=== PATIENT | male | born 1990 | race African-American/Black ===

== ENCOUNTER 2020-06-21 10:27 | Emergency (ER) | payer OTHER, SELFPAY ==
[2020-06-21] VITALS (7 sets, daily range): BP systolic 108–119; BP diastolic 65–78; PULSE 72–87; RESP 16–25; TEMP 37.1; O2SAT 98–100
--- NOTE | ~2020-06-21 | CT_ITS ---
EXAMINATION: CTA chest PE protocol DATE: 06/21/2020 14:08 INDICATION: Chest pain. TECHNIQUE: Computed tomography angiography (CTA) of the chest was performed with 100 mL Omnipaque-350 intravenous contrast timed to evaluate the pulmonary arteries. Coronal maximum intensity projection 3D-reconstructions were created by the technologist. Automated exposure control and iterative reconst ruction technique were employed. The dose-length product was 267.89 mGy-cm. COMPARISON: Chest single view 06/21/20 FINDINGS: There is no pneumonia or pleural effusion. The heart size is normal. No pericardial effusio n. There is no pulmonary embolus. The bones are unremarkable. IMPRESSION: 1. No pulmonary embolus. Reviewed, dictated and finalized at location A. MACHINE HELPER IMPRESSION: 1. No pulmonary embolus.
--- NOTE | ~2020-06-21 | XR_ITS ---
EXAMINATION: XR chest 1V portable DATE: 06/21/2020 11:17 INDICATION: Anterior pain. TECHNIQUE: A single frontal view of the chest was obtained. COMPARISON: None. FINDINGS: The chest demonstrates clear lungs without pneumonia, pleural effusion, or pneumothorax. Th e heart size is normal. IMPRESSION: 1. No acute cardiopulmonary disease. Reviewed, dictated and finalized at location A. L ASSEMBLER
--- NOTE | 2020-06-21 10:36 | ECG_ITS ---
Measurements Intervals [place] Rate: 86 P: 77 FL: 174 QRS: 77 QRSD: 118 T: 54 QT: 335 QTc: 401 Interpretive Statements SINUS RHYTHM INTRAVENTRICULAR CONDUCTION DELAY ST ELEVATION CONSISTENT WITH INJURY, PERICARDITIS, OR EARLY REPOLARIZATION ABNORMAL ECG Electronically Signed On 06-21-2020 12:50:37 [employer] by Lonny Davis D.O.
[2020-06-21 11:24] LABS: Basophils Percent Auto 0.7 % (0.2-1.2); Eosinophils Absolute Auto 0.1 K/mm3 (0-0.3); Eosinophils Percent Auto 1.5 % (0-4.4); Hematocrit 46.2 % (42.0-52.0); Hemoglobin 15.6 g/dL (14.0-18.0); Lymphocytes Absolute Auto 2.07 K/mm3 (0.9-3.2); Lymphocytes Percent Auto 50.5 % (18.3-44.2); Mean Corpuscular HGB Conc 33.8 g/dl (32-36); Mean Corpuscular Hemoglobin 29.4 pg (26-34); Mean Corpuscular Volume 87.2 fl (80-100); Mean Platelet Volume 10.7 fl (7.4-10.4); Monocytes Absolute Auto 0.4 K/mm3 (0.1-0.6); Monocytes Percent Auto 8.5 % (2.6-8.5); Neutrophils Absolute Auto 1.6 K/mm3 (1.3-6.7); Neutrophils Percent Auto 38.8 % (45.5-73.1); Platelet Count Result 255 k/mm3 (150-375); Red Cell Distribution Width 11.9 % (11.5-14.5); White Blood Count 4.1 K/mm3 (4.5-10.0)
[2020-06-21 11:32] LABS: Add Urine Microscopic? YES; Appearance Urine Clear (Clear); Bilirubin Urine Negative (Negative); Blood Urine Negative (Negative); Color Urine Straw (Yellow); Glucose Urine UA Negative (Negative); Ketones Urine Negative (Negative); Leukocyte Esterase Ur Negative LEU/UL (Negative); Mucus Urine Rare /lpf; Nitrate Urine Negative (Negative); Protein Urine Negative (Negative); RBC Urine 0-2 /hpf (0-2); Specific Grav Ur 1.013 (1.001-1.035); Squamous Epithelial Cell Urine Rare /hpf (Few); WBC Urine 0-3 /hpf
[2020-06-21 11:36] LABS: Alanine Aminotransferase 28 U/L (4-50); Alkaline Phosphatase 53 U/L (38-126); Anion Gap 8 mmol/L (8-16); Aspartate Amino Transferase 42 U/L (17-59); Bilirubin,Total 0.6 mg/dL (0.2-1.3); Blood Urea Nitrogen 12 mg/dL (9-20); Calcium 9.9 mg/dL (8.4-10.2); Carbon Dioxide 30 mmol/L (22-30); Chloride 103 mmol/L (98-107); Estimated CRCL calculation 122 ml/min; Estimated Glomerular Filt Rate > 60; Glucose 87 mg/dL (75-110); Potassium 4.2 mmol/L (3.4-5.0); Sodium 141 mmol/L (137-145)
[2020-06-21 11:38] LABS: INR 0.9; Partial Thromboplastin Time 25.6 SECONDS (22.3-36.8); Prothrombin Time 12.6 Seconds (11.1-14.7)
[2020-06-21 11:47] LABS: Troponin I < 0.012 ng/mL (0.000-0.034)
[2020-06-21 11:51] LABS: Amphetamine Screen Urine Negative (Negative); Barbiturate Screen Urine Negative (Negative); Benzodiazepines Screen Urine Negative (Negative); Cannabinoid Screen Urine Negative (Negative); Cocaine Screen Urine Negative (Negative); Methadone Screen Urine Negative (Negative); Opiate Screen Urine Negative (Negative); Phencyclidine Screen Urine Negative (Negative)
--- NOTE | 2020-06-21 12:08 | ED.CHESTPAIN ---
HPI - Chest Pain General Chief Complaint: Chest Pain Stated Complaint: Chest Pain Time Seen by Provider: 06/21/20 10:56 Source: patient Mode of arrival: ambulatory Limitations: no limitations History of Present Illness HPI narrative: Patient is a 30-year-old male who presents to emergency department for evaluation of intermittent midsternal chest pain for the last 24 hours that comes and goes and seems to be made worse with leaning forward patient notes mild 1 out of 10 chest pain denies any current pain at this time patient denies similar occurrence in the past or any sick contacts or recent illness and is otherwise in the room in no distress at this time has not taken anything for his symptoms Related Data Allergies Allergy/AdvReac Type Severity Reaction Status Date / Time No Known Allergies Allergy Verified 06/21/20 10:36 Review of Systems Review of Systems: All systems reviewed & are unremarkable except as noted in HPI and below PMFSH Social History Social History (Updated 06/21/20 @ 12:09 by Ben Mondragon PA-C) Smoking status: Never smoker Gender identity (if verbalized by the patient): Male Exam Narrative: Exam Narrative: GENERAL: Well-appearing, well-nourished, and in no acute distress. HEAD: Normocephalic, atraumatic. EYES: PERRLA and EOMI. ENT: Nares clear, no rhinorrhea or epistaxis. Mucous membranes moist. CHEST: Clear to auscultation. No respiratory distress. No wheezes rales or rhonchi HEART: Regular rate and rhythm. No murmur heard. Normal peripheral pulses. ABDOMEN: Soft, nontender, nondistended EXTREMITIES: Normal range of motion. No edema. SKIN: Warm, dry, no rash. NEURO: No focal deficits. Alert and oriented x3. Cranial nerves II through XII grossly intact PSYCH: Normal mood and affect. Course Course Emergency Course: Patient evaluated in the emergency department for mild chest pain for the last 24 hours no high risk changes in the imaging or blood work patient had CTA ruling out pulmonary embolus 2 - troponins otherwise unremarkable evaluation at this time noting no pain felt low risk for acute coronary syndrome will be discharged with primary care follow-up for further evaluation given reasons to return ABCs and vital signs intact and stable. Vital Signs Vital signs: Vital Signs Temperature 98.7 F 06/21/20 10:33 Pulse Rate 87 06/21/20 10:33 Respiratory Rate 18 06/21/20 10:33 Blood Pressure 119/78 06/21/20 10:33 Pulse Oximetry 100 06/21/20 10:33 Temperature 98.7 F 06/21/20 10:33 Pulse Rate 77 06/21/20 12:26 Respiratory Rate 18 06/21/20 12:26 Blood Pressure 108/65 06/21/20 12:26 Pulse Oximetry 100 06/21/20 12:26 MDM - Chest Pain MDM Narrative Medical decision making narrative: Patients EKGs and labs are without significant high risk changes. Cardiac risk factors were reviewed. Patient is felt likely to be low risk for ACS and reasonable for further risk stratification testing as an outpatient. Pain was not sudden or maximal in onset without tearing or ripping. quality. No other signs or symptoms to suggest aortic dissection. A low-risk Wells criteria is noted. PE is felt to be unlikely. No pneumonia or URI symptoms were seen on evaluation today. Patient is felt to be reasonable for continued evaluation as an outpatient. Lab Data Result diagrams: 06/21/20 11:13 06/21/20 11:13 Labs: Lab Results 06/21/20 06/21/20 06/21/20 Range/Units 11:13 11:13 11:13 WBC 4.1 L (4.5-10.0) K/mm3 RBC 5.30 (4.6-6.20) M/mm3 Hgb 15.6 (14.0-18.0) g/dL Hct 46.2 (42.0-52.0) % MCV 87.2 (80-100) fl MCH 29.4 (26-34) pg MCHC 33.8 (32-36) g/dl RDW 11.9 (11.5-14.5) % Plt Count 255 (150-375) k/mm3 MPV 10.7 H (7.4-10.4) fl Immature Gran % (Auto) 0.0 (0-0.5) % Neut % (Auto) 38.8 L (45.5-73.1) % Lymph % (Auto) 50.5 H (18.3-44.2) % [place] % (Auto) 8.5 (2.6-8.5) % Eos % (Auto) 1.5
[2020-06-21 12:47] LABS: D Dimer 1.34 ug/mL (<0.48)
[2020-06-21 14:23] LABS: Troponin I < 0.012 ng/mL (0.000-0.034)
== END 2020-06-21 14:58 | disposition home or self-care (01) ==
PROVIDERS: Emergency Medicine Emergency Medical Services; Emergency Provider Emergency Medicine
DX: I45.9 Conduction disorder, unspecified (principal); R94.31 Abnormal electrocardiogram [ECG] [EKG]
CPT/HCPCS: 36415; 71045; 71275; 80053; 80307; 81001; 84484; 85025; 85380; 85610; 85730; 93005; 99284; Q9967

== ENCOUNTER 2024-06-07 09:42 | Emergency (ER) | payer OTHER, SELFPAY ==
[2024-06-07 09:44] VITALS: BP 118/70; PULSE 92; RESP 16; TEMP 36.4; O2SAT 100
--- NOTE | 2024-06-07 11:10 | ED.BACK ---
HPI - Back Pain/Injury General Chief Complaint: Back Pain/Injury Stated Complaint: low back pain Time Seen by Provider: 06/07/24 10:58 History of Present Illness HPI Narrative: 34-year-old male presents to the ED with no past medical history for back pain for 15 years. Patient states 15 years ago pick something off the ground without using his legs and since and has been having back pain. Patient states the pain is diffusely throughout his low back and radiates into his hips and bilateral ankles. States the pain is worse when he twists his torso, sits or stands for long periods of time. States over the past 2 years the pain has worsened which prompted him to come to the ED today. States he was evaluated at [facility] a year ago and had an x-ray performed discharge medications without improvement. He then followed up with a chiropractor about 6 months ago had repeat x-rays adjustment without improvement. States he has not established with a PCP and would like a referral. He denies recent injury or trauma, abdominal pain, dysuria or hematuria, saddle anesthesia, bowel or bladder incontinence, urinary retention, fever, use of IV drugs, immuno compromising condition or medications. Related Data Allergies Allergy/AdvReac Type Severity Reaction Status Date / Time No Known Allergies Allergy Verified 06/07/24 09:42 Review of Systems Review of Systems: All systems reviewed & are unremarkable except as noted in HPI and below PMFSH Social History Social History Smoking status: Never smoker Gender identity (if verbalized by the patient): Male Exam Narrative: GENERAL: Well-appearing, well-nourished, and in no acute distress. HEAD: Normocephalic, atraumatic. EYES:EOMI. ENT: Nares clear, no rhinorrhea or epistaxis. Mucous membranes moist. NECK: Supple. BACK: No midline spinous tenderness, crepitus, step-offs or deformities, no paraspinous muscle tenderness, no overlying skin changes. Negative straight leg raise bilaterally CHEST: Clear to auscultation. No respiratory distress. HEART: Regular rate and rhythm. No murmur heard. Normal peripheral pulses. ABDOMEN: Soft, nontender, nondistended, normal active bowel sounds. EXTREMITIES: Normal range of motion. No edema. SKIN: Warm, dry, no rash. NEURO: No focal deficits. Alert and oriented x3. BLE strength 5/5, no saddle anesthesia, sensation intact throughout Course Vital Signs Vital signs: Vital Signs Temperature 97.6 F 06/07/24 09:44 Pulse Rate 92 06/07/24 09:44 Respiratory Rate 16 06/07/24 09:44 Blood Pressure 118/70 06/07/24 09:44 Pulse Oximetry 100 06/07/24 09:44 Oxygen Delivery Room Air 06/07/24 09:44 Temperature 97.6 F 06/07/24 09:44 Pulse Rate 92 06/07/24 09:44 Respiratory Rate 16 06/07/24 09:44 Blood Pressure 118/70 06/07/24 09:44 Pulse Oximetry 100 06/07/24 09:44 Oxygen Delivery Room Air 06/07/24 09:44 MDM - Back Pain/Injury MDM Narrative Medical decision making narrative: 34-year-old male presents emergency department for back pain for 15 years, worsening over the past 2 years. See HPI for further history. Triage vitals are stable. He is afebrile and nontoxic appearing. Exam significant for no tenderness to the spine, no paraspinous muscle tenderness, no neurologic deficits, no saddle anesthesia, strength intact. He has no red flag back pain signs. No urinary complaints, no abdominal pain concerning for intra-abdominal pathology, no signs of infection or risks of infection. Presentation consistent with MSK etiology. Given reassuring exam and story, do not feel further workup is needed at this time. Patient was given Flexeril, ibuprofen and lidocaine patches in the ED discharged home with these medications. He is provided follow-up with PCP and supportive measures were discussed. ED return precautions provided. He is agreeable with the plan verbalized understanding. Discharged in stable condition. Discharge Plan Discharge Clinical Impression: Lumbar radiculopathy Patient Disposition: Home, Self-Care Condition: Stable Instructions: Antibiotic Form, Lumbar Radiculopathy (ED), Back Pain (ED), Lower Back Exercises (ED) Additional Instructions: Take medications as directed. Follow-up with primary care provider. Return to the emergency department if you develop a fever, abdominal pain, you lose control of her bowel or bladder, you develop numbness in your groin, or other concerning symptoms. Patient Language: Samoan Prescriptions: New cyclobenzaprine 10 mg tablet 10 mg PO TID PRN (Reason: muscle spasm) Qty: 14 0RF ibuprofen 800 mg tablet 800 mg PO TID PRN (Reason: pain) Qty: 20 0RF lidocaine 5 % adhesive patch,medicated 1 patch topical DAILY Qty: 15 0RF Rx Instructions: leave on most painful area for up to 12 hrs. do not use more than 1 patch in a 24-hour period. No Action ibuprofen [IBU] 600 mg tablet 600 mg PO Q6H PRN (Reason: fever or pain) Qty: 7 0RF Follow-up/Referrals: PHYSICIAN,ROUTE SALES SPECIALIST [Primary Care Provider] - Ronnie Silver MD [Physician] -
[2024-06-07 11:23] VITALS: BP 108/83; PULSE 94; RESP 15; TEMP 36.7; O2SAT 100
== END 2024-06-07 11:25 | disposition home or self-care (01) ==
LOC: ANHED 11:16
PROVIDERS: Emergency Provider Physician Assistant
DX: M54.16 Radiculopathy, lumbar region (principal)
CPT/HCPCS: 99283

== ENCOUNTER 2024-06-28 09:15 | Emergency (ER) | payer OTHER, SELFPAY ==
[2024-06-28 09:16] VITALS: BP 124/74; PULSE 77; RESP 16; TEMP 36.6; O2SAT 99
--- NOTE | 2024-06-28 12:15 | ED_ITS ---
HPI - Skin/Abscess/Foreign Bdy General Chief complaint: Skin/Abscess/Foreign Body Stated complaint: rash Time Seen by Provider: 06/28/24 12:03 History of Present Illness HPI narrative: 34-year-old otherwise healthy male with a past medical history including childhood eczema presenting to the emergency room with acute rash in his trunk and upper extremities. Spares the palms and soles, no genitourinary rashes or lesions. Somewhat similar to his eczema. He is got HE exanthem on his trunk and back as well as his forearms and upper extremity. No fever, chills or systemic symptoms. Was otherwise in his normal state of health. Has not taken anything for symptom control. Related Data Allergies Allergy/AdvReac Type Severity Reaction Status Date / Time No Known Allergies Allergy Verified 06/07/24 09:42 Review of Systems Review of Systems: As reviewed above in HPI [facility] Social History Social History Smoking status: Never smoker Gender identity (if verbalized by the patient): Male Exam Narrative: GENERAL: [Well-appearing, well-nourished, and in no acute distress.] HEAD: [Normocephalic, atraumatic.] EYES: [PERRLA and EOMI.] ENT: Nares clear, no rhinorrhea or epistaxis. Mucous membranes moist. NECK: Supple. CHEST: [Clear to auscultation. No respiratory distress.] HEART: [Regular rate and rhythm]. No murmur heard. [Normal peripheral pulses.] ABDOMEN: [Soft, nondistended], [nontender], [No rigidity or guarding] EXTREMITIES: Normal range of motion. [No edema.] SKIN: Itchy viral exanthem over the trunk, back and upper extremities sparing the palms and soles. Potentially eczematous without any redness or tenderness of palpation, no vesicular rash or lesions. No ulcerations. No reported genitourinary lesions. NEURO: [No focal deficits]. Alert and oriented [x3.] PSYCH: [Normal mood and affect.] Course Vital Signs Vital signs: Vital Signs Temperature 36.6 C 06/28/24 09:16 Pulse Rate 77 06/28/24 09:16 Respiratory Rate 16 06/28/24 09:16 Blood Pressure 124/74 06/28/24 09:16 Pulse Oximetry 99 06/28/24 09:16 Oxygen Delivery Room Air 06/28/24 09:16 Temperature 36.6 C 06/28/24 09:16 Pulse Rate 77 06/28/24 09:16 Respiratory Rate 16 06/28/24 09:16 Blood Pressure 124/74 06/28/24 09:16 Pulse Oximetry 99 06/28/24 09:16 Oxygen Delivery Room Air 06/28/24 09:16 MDM - Skin/Abscess/Foreign Bdy MDM Narrative Medical decision making narrative: 34-year-old otherwise healthy male with a past medical history of eczema presenting with a acute rash to his trunk and upper extremities. Appears to be a viral exanthem versus eczema versus dyshidrotic eczema. Potential allergic reaction or exposure as he thinks he might have got some new clothing. Overall benign appearing rash without any involvement of the palms or soles. No genitourinary rash or lesions. Normal vital signs and no systemic symptoms. Will treat him with a course of Atarax and Medrol and sent home with prescri ptions for the above. Patient was encouraged to follow-up with regular doctor or return with any new concerns. Differential Diagnosis Differential diagnosis: Likely viral exanthem, dermatophytosis, urticaria, allergic reaction to drug, cellulitis, eczema, impetigo and contact dermatitis Medical Records Attestation: I reviewed the patient's medical records. Discharge Plan Discharge Clinical Impression: Rash, Eczema Patient Disposition: Home, Self-Care Condition: Stable Instructions: Antibiotic Form, Eczema (ED), Acute Rash (ED) Additional Instructions: Your rash could very well be related to an allergic reaction versus a flare-up of her eczema. Could also be related to environmental exposure. We will send you home with some steroids and Atarax for itchiness. He can also get over-the- counter creams like Eucerin or calamine lotion for the itchiness. Call your regular doctor to set up a follow-up visit. Return with any new or worsening concerns at any time. Patient Language: Amharic Prescriptions: New methylprednisolone [Medrol (Edgardo)] 4 mg tablets,dose pack See Rx Instructions .ROUTE .COMPLEX Qty: 21 0RF Rx Instructions: orally per package directions hydroxyzine HCl 10 mg tablet 10 mg PO TID PRN (Reason: itching) Qty: 30 0RF No Action cyclobenzaprine 10 mg tablet 10 mg PO TID PRN (Reason: muscle spasm) Qty: 14 0RF ibuprofen 800 mg tablet 800 mg PO TID PRN (Reason: pain) Qty: 20 0RF lidocaine 5 % adhesive patch,medicated 1 patch topical DAILY Qty: 15 0RF Rx Instructions: leave on most painful area for up to 12 hrs. do not use more than 1 patch in a 24-hour period. ibuprofen [IBU] 600 mg tablet 600 mg PO Q6H PRN (Reason: fever or pain) Qty: 7 0RF Follow-up/Referrals: UNKNOWN,DOCTOR [Primary Care Provider] - Time of Disposition: 12:14
[2024-06-28] MEDS: methylPREDNISolone 4 MG TABLET PO (12:39)
[2024-06-28] MEDS: hydrOXYzine HCL 25 MG TABLET PO (12:39)
[2024-06-28 12:41] VITALS: BP 118/75; PULSE 75; RESP 16; TEMP 36.6; O2SAT 98
== END 2024-06-28 12:42 | disposition home or self-care (01) ==
PROVIDERS: Emergency Provider Student in an Organized Health Care Education/Training Program
DX: R21 Rash and other nonspecific skin eruption (principal); L30.9 Dermatitis, unspecified
CPT/HCPCS: 99283; A9270